=== PATIENT | female | born 1965 | race African-American/Black ===

== ENCOUNTER 2019-06-28 05:19 | Emergency (ER) | payer SELFPAY ==
[~2019-06-28] VITALS: Ht 167.6 cm; Wt 92.0 kg
[2019-06-28] MEDS ORDERED: HYDRALAZINE 20MG/ML VIAL IV ONE ×3 (06:00→07:15)
[2019-06-28] MEDS ORDERED: ONDANSETRON HCL 4MG/2ML INJ IV ONE (06:00)
[2019-06-28] MEDS ORDERED: ETOMIDATE 2MG/ML 10ML VIAL IV ONE ×2 (06:30)
[2019-06-28] MEDS ORDERED: MIDAZOLAM HCL 2 MG/2 ML VIAL IV ONE (06:30)
[2019-06-28] MEDS ORDERED: MIDAZOLAM HCL 50 MG in DEXTROSE 5% WATER 40 ML IV ONE ×4 (06:30)
[2019-06-28] MEDS ORDERED: SUCCINYLCHOLINE CHLORIDE 200MG/10ML IV ONE (06:30)
[2019-06-28 06:32] LABS: HEMATOCRIT. 25.8 % (36.0-48.0); HEMOGLOBIN. 7.7 g/dL (12.0-16.0); MEAN CORPUSCULAR HEMOGLOBIN 26.5 pg (28.0-32.0); MEAN CORPUSCULAR VOLUME 88.4 fL (81.0-99.0); MEAN PLATELET VOLUME 10.1 fl (7.4-10.4); RED BLOOD CELL COUNT 2.92 mill/uL (4.2-5.4); RED CELL DISTRIBUTION WIDTH 22.7 % (11.6-14.6)
[2019-06-28 06:36] LABS: CHLORIDE 103 mEq/L (98-107)
[2019-06-28 06:38] LABS: PLATELET 27 x1000/uL (130-400); PROTHROMBIN TIME 10.7 sec (9.6-11.0)
[2019-06-28 06:40] LABS: ETHANOL BLOOD < 10 mg/dL
[2019-06-28 06:43] LABS: LDL CHOLESTEROL 199 mg/dL (5-100)
[2019-06-28 06:54] LABS: BG BASE EXCESS -6.7 mmol/L (-2.0-2.0); BG CARBOXYHEMOGLOBIN 0.7 % (0.5-1.5); BG DEOXYHEMOGLOBIN 16.8 % (0.0-5.0); BG FRACTION INSPIRED OXYGEN 100; BG HCO3 ACT 18.6 mmol/L (22.0-26.0); BG METHEMOGLOBIN 0.6 % (0.0-1.5); BG OXYHEMOGLOBIN 81.9 % (94.0-97.0); BG PCO2 36.2 mmHg (35.0-45.0); BG PH 7.328 (7.350-7.450); BG SAMPLE SITE RIGHT BRACHIAL; BG TIDAL VOLUME(mL) 500 mL; BG TOTAL HEMOGLOBIN 8.8 g/dL (12.0-18.0); BG VENT MODE VENT - A/C; BG VENT RATE 16 set
[2019-06-28] MEDS ORDERED: HYDRALAZINE 20MG/ML VIAL IV SCH ×2 (07:02→07:15)
[2019-06-28 07:23] LABS: PLATELET ESTIMATE MARKEDLY DECREASED
[2019-06-28] MEDS ORDERED: NICARDIPINE 100 MG in SODIUM CHLORIDE 0.9% 60 ML IV PRN ×3 (07:30→09:00)
[2019-06-28] MEDS ORDERED: PIPERACILLIN/TAZ 3.375G PREMIX 50 ML IV ONE (07:30)
[2019-06-28] MEDS ORDERED: LEVETIRACETAM 1000MG/100ML 100 ML IV ONE (07:30)
[2019-06-28 07:51] LABS: CLARITY URINE CLOUDY (CLEAR); COLOR URINE YELLOW (YELLOW); KETONES URINE 1+ (NEGATIVE); LEUKOCYTE ESTERASE URINE NEGATIVE (NEGATIVE); NITRITE URINE NEGATIVE (NEGATIVE); OCCULT BLOOD URINE 1+ (NEGATIVE); PROTEIN URINE 3+ (NEGATIVE); SPECIFIC GRAVITY URINE 1.018 (1.005-1.030)
[2019-06-28] MEDS ORDERED: IOHEXOL-350 100 ML BOTTLE ONE (07:53)
[2019-06-28] MEDS ORDERED: DEXAMETHASONE 4MG/ML 1ML VIAL IV ONE (08:00)
[2019-06-28] MEDS ORDERED: MANNITOL 12.5G (25%) VIAL 50ML IV ONE (08:00)
[2019-06-28 08:01] LABS: *AMPHETAMINES SCREEN URINE NEGATIVE (NEGATIVE); *BARBITURATES SCREEN URINE NEGATIVE (NEGATIVE); *BENZODIAZEPINES SCREEN URINE NEGATIVE (NEGATIVE)
[2019-06-28 08:02] LABS: *COCAINE SCREEN URINE NEGATIVE (NEGATIVE); METHADONE URINE SCREEN NEGATIVE (NEGATIVE); OPIATES URINE SCREEN NEGATIVE (NEGATIVE); PHENCYCLIDINE URINE SCREEN NEGATIVE (NEGATIVE)
[2019-06-28 08:03] LABS: CANNABINOID URINE SCREEN NEGATIVE (NEGATIVE)
[2019-06-28] MEDS ORDERED: LEVETIRACETAM 1000MG/100ML 100 ML IV NR (08:12)
[2019-06-28] MEDS: VANCOMYCIN 1 G PREMIX 200 ML IV ONE (08:38)
[2019-06-28] MEDS ORDERED: DEXT 5%/LACTATED RINGERS 1,000 ML IV SCH (09:00)
[2019-06-28] MEDS ORDERED: LEVETIRACETAM 500MG PREMIX 100 ML IV SCH (09:00)
[2019-06-28] MEDS ORDERED: EPINEPHRINE 0.1MG/ML (1:10,000) 10ML SYR ONE (09:09)
[2019-06-28] MEDS ORDERED: AMIODARONE HCL 150 MG in DEXT 5% WATER 100 ML IV ONE (09:15)
[2019-06-28 09:24] VITALS: BP 198/96
[2019-06-28] MEDS ORDERED: DEXAMETHASONE 4MG/ML 1ML VIAL IV SCH (12:00)
== END 2019-06-28 09:32 | disposition expired ==
LOC: ER 05:19 → EDBEDREQSVC 07:28 → EDBEDREQ 09:06 → EDBEDREQTM 09:06 → ER 09:32 → CANBEDREQ 11:21
DX: I46.9 Cardiac arrest, cause unspecified (principal); I61.9 Nontraumatic intracerebral hemorrhage, unspecified; R40.2430 Glasgow coma scale score 3-8, unspecified time; J96.00 Acute respiratory failure, unspecified whether with hypoxia or hypercapnia; G93.40 Encephalopathy, unspecified; J69.0 Pneumonitis due to inhalation of food and vomit; D69.6 Thrombocytopenia, unspecified; I10 Essential (primary) hypertension; E05.90 Thyrotoxicosis, unspecified without thyrotoxic crisis or storm; M10.9 Gout, unspecified; Z85.6 Personal history of leukemia
CPT/HCPCS: 36415; 36600; 70450; 70496; 71045; 80053; 80305; 80320; 81003; 82375; 82805; 82962; 83721; 84484; 85025; 85610; 93005; 94002; 96365; 96366; 96367; 96375; 96376; 99291; J0282; J0360; J1100; J1953; J2150; J2250; J2405; J2543; J3370; J3490; J7050; J7060; Q9967; Z7610; G0480